=== PATIENT | male | born 1940 | race Two or more races ===

== ENCOUNTER 2019-02-15 08:36 | Outpatient (CLI) | payer MEDICARE | END 2019-02-15 23:59 | disposition home or self-care (01) | LOC: PETCFH 08:36 | PROVIDERS: ATTEND Specialist | DX: C90.00 Multiple myeloma not having achieved remission (principal); D70.8 Other neutropenia | CPT/HCPCS: 78816; A9552 ==

== ENCOUNTER 2020-01-27 13:59 | Outpatient (CLI) | payer MEDICARE | END 2020-01-27 23:59 | disposition home or self-care (01) | LOC: LAB 13:59 | PROVIDERS: ATTEND Family Medicine | DX: Z02.9 Encounter for administrative examinations, unspecified (principal) ==